=== PATIENT | female | born 1955 | race African-American/Black ===

== ENCOUNTER → 2016-10-18 | Outpatient (CLI) | payer OTHER | LOC: HYPER 07:01 | DX: T87.89 Other complications of amputation stump (principal); S98.921A Partial traumatic amputation of right foot, level unspecified, initial encounter; R60.0 Localized edema; E11.628 Type 2 diabetes mellitus with other skin complications; I10 Essential (primary) hypertension; Z79.4 Long term (current) use of insulin; Z85.3 Personal history of malignant neoplasm of breast; Z86.14 Personal history of Methicillin resistant Staphylococcus aureus infection; X58.XXXA Exposure to other specified factors, initial encounter; Y93.89 Activity, other specified; Y92.89 Other specified places as the place of occurrence of the external cause; Y99.8 Other external cause status; Y83.5 Amputation of limb(s) as the cause of abnormal reaction of the patient, or of later complication, without mention of misadventure at the time of the procedure ==

== ENCOUNTER → 2016-11-23 | Outpatient (CLI) | payer OTHER | LOC: HYPER 11-02 07:10 | DX: T87.89 Other complications of amputation stump (principal); E11.628 Type 2 diabetes mellitus with other skin complications; I10 Essential (primary) hypertension; Z86.14 Personal history of Methicillin resistant Staphylococcus aureus infection; Z79.4 Long term (current) use of insulin; Z85.3 Personal history of malignant neoplasm of breast; Y83.5 Amputation of limb(s) as the cause of abnormal reaction of the patient, or of later complication, without mention of misadventure at the time of the procedure ==

== ENCOUNTER → 2016-12-21 | Outpatient (CLI) | payer OTHER | LOC: HYPER 12-14 06:57 | DX: T87.89 Other complications of amputation stump (principal); E11.628 Type 2 diabetes mellitus with other skin complications; Z79.4 Long term (current) use of insulin; Z85.3 Personal history of malignant neoplasm of breast; Z86.14 Personal history of Methicillin resistant Staphylococcus aureus infection; Y83.5 Amputation of limb(s) as the cause of abnormal reaction of the patient, or of later complication, without mention of misadventure at the time of the procedure ==

== ENCOUNTER → 2017-01-11 | Outpatient (CLI) | payer OTHER | LOC: HYPER 07:07 | DX: T87.89 Other complications of amputation stump (principal); E11.628 Type 2 diabetes mellitus with other skin complications; Z79.4 Long term (current) use of insulin; Z85.3 Personal history of malignant neoplasm of breast; I10 Essential (primary) hypertension; Z86.14 Personal history of Methicillin resistant Staphylococcus aureus infection; Y83.5 Amputation of limb(s) as the cause of abnormal reaction of the patient, or of later complication, without mention of misadventure at the time of the procedure ==

== ENCOUNTER → 2017-01-25 | Outpatient (CLI) | payer OTHER | LOC: HYPER 07:19 | DX: T87.89 Other complications of amputation stump (principal); E11.628 Type 2 diabetes mellitus with other skin complications; R60.0 Localized edema; Z79.4 Long term (current) use of insulin; E11.9 Type 2 diabetes mellitus without complications; Z85.3 Personal history of malignant neoplasm of breast; I10 Essential (primary) hypertension; Z86.14 Personal history of Methicillin resistant Staphylococcus aureus infection; Z89.431 Acquired absence of right foot; Y83.5 Amputation of limb(s) as the cause of abnormal reaction of the patient, or of later complication, without mention of misadventure at the time of the procedure ==

== ENCOUNTER → 2017-02-08 | Outpatient (CLI) | payer OTHER | LOC: HYPER 06:55 | DX: T87.89 Other complications of amputation stump (principal); L84 Corns and callosities; E11.39 Type 2 diabetes mellitus with other diabetic ophthalmic complication; H40.9 Unspecified glaucoma; I10 Essential (primary) hypertension; Z86.14 Personal history of Methicillin resistant Staphylococcus aureus infection; Z79.4 Long term (current) use of insulin; Z85.3 Personal history of malignant neoplasm of breast; Y83.5 Amputation of limb(s) as the cause of abnormal reaction of the patient, or of later complication, without mention of misadventure at the time of the procedure ==

== ENCOUNTER → 2017-02-22 | Outpatient (CLI) | payer OTHER | LOC: HYPER 02-16 07:11 | DX: T87.89 Other complications of amputation stump (principal); E11.628 Type 2 diabetes mellitus with other skin complications; I10 Essential (primary) hypertension; Z79.4 Long term (current) use of insulin; Z85.3 Personal history of malignant neoplasm of breast; Z86.14 Personal history of Methicillin resistant Staphylococcus aureus infection; Y83.5 Amputation of limb(s) as the cause of abnormal reaction of the patient, or of later complication, without mention of misadventure at the time of the procedure ==

== ENCOUNTER → 2017-03-08 | Outpatient (CLI) | payer OTHER | LOC: HYPER 07:22 | DX: T87.89 Other complications of amputation stump (principal); E11.628 Type 2 diabetes mellitus with other skin complications; Z79.4 Long term (current) use of insulin; Z85.3 Personal history of malignant neoplasm of breast; Z86.14 Personal history of Methicillin resistant Staphylococcus aureus infection; E11.39 Type 2 diabetes mellitus with other diabetic ophthalmic complication; H40.9 Unspecified glaucoma; Y83.5 Amputation of limb(s) as the cause of abnormal reaction of the patient, or of later complication, without mention of misadventure at the time of the procedure ==

== ENCOUNTER 2017-03-23 23:54 | Emergency (ER) | payer OTHER ==
[~2017-03-23] VITALS: Ht 175.3 cm; Wt 99.8 kg
[2017-03-24] MEDS ORDERED: NORVASC10 MG PO (00:18)
[2017-03-24] MEDS ORDERED: ASPIR 8181 MG PO (00:19)
[2017-03-24] MEDS ORDERED: NOVOLOG100 UNIT/1 SUBQ (00:20)
[2017-03-24] MEDS ORDERED: HYDROCHLOROTHIA25 M2 (00:20)
[2017-03-24] MEDS ORDERED: LEVEMIR SUBQ (00:22)
[2017-03-24] MEDS ORDERED: VIBRAMYCIN 100100 MG PO (00:27)
[2017-03-24 00:45] VITALS: BP 140/70
[2017-03-24] MEDS ORDERED: HYZAAR 50-12.51 EACH PO (21:02)
== END 2017-03-24 00:55 | disposition home or self-care (01) ==
LOC: ER 23:54
DX: L08.89 Other specified local infections of the skin and subcutaneous tissue (principal); E11.9 Type 2 diabetes mellitus without complications; I10 Essential (primary) hypertension

== ENCOUNTER → 2017-03-24 | Outpatient (CLI) | payer OTHER ==
[~2017-03-24] MED LIST: ASPIR 8181 MG PO; HYDROCHLOROTHIA25 M2; HYZAAR 50-12.51 EACH PO; LEVEMIR SUBQ; NORVASC10 MG PO; NOVOLOG100 UNIT/1 SUBQ; VIBRAMYCIN 100100 MG PO
== END ==
LOC: HYPER 08:24
DX: T87.89 Other complications of amputation stump (principal); S91.301D Unspecified open wound, right foot, subsequent encounter; S91.105D Unspecified open wound of left lesser toe(s) without damage to nail, subsequent encounter; Z85.3 Personal history of malignant neoplasm of breast; E11.39 Type 2 diabetes mellitus with other diabetic ophthalmic complication; H40.9 Unspecified glaucoma; X58.XXXD Exposure to other specified factors, subsequent encounter; Z79.4 Long term (current) use of insulin; Y83.5 Amputation of limb(s) as the cause of abnormal reaction of the patient, or of later complication, without mention of misadventure at the time of the procedure